=== PATIENT | female | born 2000 | race Caucasian/White ===

== ENCOUNTER → 2019-12-02 | Outpatient (CLI) | payer BC ==
--- NOTE | 2019-12-03 08:34 | US ---
EXAMINATION TYPE: US abdomen comp/pelvis limited DATE OF EXAM: 12/02/2019 COMPARISON: NONE CLINICAL HISTORY: R10.9 Abdominal pain. Pain nausea and vomiting for 4 days. EXAM MEASUREMENTS: Liver Length: 14.6 cm Gallbladder Wall: .2 cm CBD: .4 cm Spleen: 10.2 cm Right Kidney: 9.5 x 3.5 x 5.5 cm Left Kidney: 10.8 x 5.6 x 4.6 cm Pancreas: wnl Liver: wnl Gallbladder: wnl CBD: wnl Spleen: wnl Right Kidney: No hydronephrosis or masses seen Left Kidney: No hydronephrosis or masses seen Upper IVC: wnl Abd Aorta: wnl Bladder: wnl Bilateral Jets Seen No IMPRESSION: Unremarkable abdominal ultrasound. No sonographic evidence of cholelithiasis nor acute ch olecystitis.
== END | disposition home or self-care (01) ==
LOC: RADUSWWP 14:52
PROVIDERS: ATTEND Family Medicine
DX: R10.9 Unspecified abdominal pain (principal)
CPT/HCPCS: 76700; 76857

== ENCOUNTER → 2021-01-08 | Outpatient (CLI) | payer BC ==
[2021-01-08 14:37] LABS: Basophils # (A) 0.05 X 10*3/uL (0.00-0.10); Basophils % (A) 0.5 %; Eosinophils # (A) 0.16 X 10*3/uL (0.04-0.35); Eosinophils % (A) 1.7 %; HCT 43.7 % (37.2-46.3); HGB 14.6 g/dL (12.0-15.0); Lymphocytes # (A) 3.91 X 10*3/uL (0.90-5.00); MCH 29.7 pg (27.0-32.0); MCHC 33.4 g/dL (32.0-37.0); MCV 88.8 fL (80.0-97.0); Mean Platelet Volume 10.3 fL (9.5-12.2); Monocytes # (A) 0.84 X 10*3/uL (0.20-1.00); Neutrophils # (A) 4.32 X 10*3/uL (1.80-7.70); Neutrophils % (A) 46.6 %; Platelet Count 351 X 10*3/uL (140-440); RBC 4.92 X 10*6/uL (4.10-5.20); RDW 11.5 % (11.5-14.5)
[2021-01-08 16:44] LABS: African American GFR (CKD) 121.3 (60.0-200.0); Albumin 4.9 g/dL (3.80-4.90); Albumin/Globulin Ratio 2.13 (1.60-3.17); Anion Gap 7.8 mmol/L (4.00-12.00); BUN/Creat Ratio 16.25 Ratio (12.00-20.00); Calcium 9.9 mg/dL (8.7-10.3); Carbon Dioxide 29.2 mmol/L (21.6-31.8); Chol/HDL Ratio 2.6; Globulin 2.3 g/dL (1.6-3.3); LDL Cholesterol,Calculated 99.6 mg/dL (0.0-131.0); Non-African American GFR(CKD) 104.6 (60.0-200.0); Potassium 3.9 mmol/L (3.5-5.5); Total Bilirubin 0.8 mg/dL (0.3-1.2); Total Protein 7.2 g/dL (6.2-8.2); VLDL Calculation 12.4 mg/dL (5.00-40.00)
== END | disposition home or self-care (01) ==
LOC: LABWHC1 07:41
PROVIDERS: ATTEND Family Medicine
DX: Z00.00 Encounter for general adult medical examination without abnormal findings (principal)
CPT/HCPCS: 36415; 80053; 80061; 84443; 85025

== ENCOUNTER → 2021-01-15 | Outpatient (CLI) | payer BC ==
--- NOTE | 2021-01-16 15:51 | US ---
EXAMINATION TYPE: US thyroid st tissue head/neck DATE OF EXAM: 01/15/2021 COMPARISON: NONE CLINICAL HISTORY: E06.9 THYROIDITIS. GLAND SIZE: Right Lobe: 5.5 x 1.5 x 1.3 cm Overall Parenchyma: mildly heterogeneous Left Lobe: 5.5 x 1.3 x 1.6 cm Overall Parenchyma: mildly heterogeneous Isthmus Thickness: 0.3 cm NODULES RIGHT: # of nodules measured on right: 0 LEFT: # of nodules measured on left: 0 ISTHMUS: # of nodules measured in the isthmus: 0 Bilateral neck scanned, no evidence of lymphadenopathy. Gland is mildly heterogeneous without definite nodule seen. IMPRESSION: 1. Mild prominence of the thyroid. No suspicious nodules evident
== END ==
LOC: RADUSWWP 16:27
PROVIDERS: ATTEND Family Medicine
DX: E06.9 Thyroiditis, unspecified (principal)
CPT/HCPCS: 76536

== ENCOUNTER → 2021-07-10 | Outpatient (CLI) | payer BC | END | disposition home or self-care (01) | LOC: LABWHC1 15:00 | PROVIDERS: ATTEND Emergency Medicine | DX: Z20.822 Contact with and (suspected) exposure to COVID-19 (principal) | CPT/HCPCS: 87635 ==

== ENCOUNTER → 2021-07-11 | Outpatient (CLI) | payer BC | END | disposition home or self-care (01) | LOC: LABMAIN 15:12 | PROVIDERS: ATTEND Emergency Medicine | DX: Z20.822 Contact with and (suspected) exposure to COVID-19 (principal) | CPT/HCPCS: 87635 ==

== ENCOUNTER → 2021-08-09 | Outpatient (CLI) | payer BC | END | disposition home or self-care (01) | LOC: LABWHC1 19:40 | PROVIDERS: ATTEND Emergency Medicine | DX: Z20.822 Contact with and (suspected) exposure to COVID-19 (principal) | CPT/HCPCS: 87635 ==

== ENCOUNTER → 2021-08-10 | Outpatient (CLI) | payer BC, OTHER | END | disposition home or self-care (01) | LOC: LABWHC1 18:05 | PROVIDERS: ATTEND Emergency Medicine | DX: Z20.822 Contact with and (suspected) exposure to COVID-19 (principal) | CPT/HCPCS: 87635 ==

== ENCOUNTER → 2021-10-23 | Outpatient (CLI) | payer BC, OTHER | END | disposition home or self-care (01) | LOC: LABWHC1 14:24 | PROVIDERS: ATTEND Emergency Medicine | DX: Z20.822 Contact with and (suspected) exposure to COVID-19 (principal) | CPT/HCPCS: 87635 ==

== ENCOUNTER → 2021-10-24 | Outpatient (CLI) | payer BC, OTHER | END | disposition home or self-care (01) | LOC: LABWHC1 15:31 | PROVIDERS: ATTEND Emergency Medicine | DX: Z20.822 Contact with and (suspected) exposure to COVID-19 (principal) | CPT/HCPCS: 87635 ==

== ENCOUNTER → 2023-09-05 | Outpatient (CLI) | payer BC ==
--- NOTE | 2023-09-05 15:26 | US ---
EXAMINATION TYPE: US renals and bladder DATE OF EXAM: 09/05/2023 COMPARISON: NONE CLINICAL INDICATION: Female, 23 years old with history of R39.9 UNSP SYMPTOMS AND SIGNS INVOLVING THE GENITO; Frequent UTI's EXAM MEASUREMENTS: Right Kidney: 10.9 x 4.7 x 5.8 cm Left Kidney: 10.9 x 5.4 x 5.0 cm Post Void Residual Volume: 17.5 mL Right Kidney: No prominent hydronephrosis or masses seen Left Kidney: No prominent hydronephrosis or masses seen Bladder: wnl Bilateral Jets seen: Yes Normal Post Void Residual: Yes IMPRESSION: Normal renal ultrasound.
== END | disposition home or self-care (01) ==
LOC: RADUSWWP 12:11
PROVIDERS: ATTEND Family Medicine
DX: N39.0 Urinary tract infection, site not specified (principal); R39.9 Unspecified symptoms and signs involving the genitourinary system
CPT/HCPCS: 76770

== ENCOUNTER 2024-09-23 13:15 | Day surgery (SDC) | payer BC, OTHER ==
[2024-09-22 13:37] VITALS: BMI 25.3
[2024-09-23] MEDS ORDERED: LACTATED RINGERS 1,000 ML IV SCH (14:08)
[2024-09-23 14:25] VITALS: RESP 16; TEMP 98.7
--- NOTE | 2024-09-23 15:17 | P.PCN ---
Date of Procedure: 09/23/24 Procedure(s) Performed: Preoperative diagnosis: Multiple sclerosis Post operative diagnoses: Multiple sclerosis Procedure= lumbar puncture Anesthesia= local infiltration with lidocaine 1% 2 mL. Condition: stable Complication: none. Description of the procedure procedure risk and benefits discussed with the patient , consent signed. Patient and the procedure area placed in sitting position , back prepped with chlorhexidine 3 times been local infiltration of the skin and subcutaneous tissue with lidocaine 1% 2 mL for skin and subcu interstitial frustrations at L4 5 levels then 22-gauge Quincke-type needle advanced slowly at L4- 5 interlaminar space there was positive cerebrospinal fluid which was clear, no heme, no paresthesia ,total of 8 ML of clear cerebrospinal fluid collected in 4 different tubes 2 mL in each, then the needle removed and a Band-Aid applied and patient tolerated the procedure well without any complications.
[2024-09-23 15:42] VITALS: BP 120/76; PULSE 83
[2024-09-23 15:45] LABS: ALT 19 U/L (4-34); AST 21 U/L (14-36); Glucose 80 mg/dL (74-99)
[2024-09-23 17:18] LABS: Appearance,CSF Clear; CSF Tube Number 4; CSF Tube Volume 2.5
[2024-09-23 17:30] LABS: Glucose,CSF 48 mg/dL (40-70); Total Protein,CSF 47 mg/dL (12-60)
[2024-09-23 17:31] LABS: Nucleated Cells, CSF 1 u/L (0-5); Red Blood Cell,CSF 0 u/L (0-10)
[2024-09-23 22:17] LABS: Anti-DNA, DS unit <1.0 IU/mL; Anti-Smith Ab Interp Negative (Negative); DNA Double-Stranded Negative (Negative)
[2024-09-24 03:58] LABS: Rheumatoid Factor, Qnt <15 IU/mL (0-15)
[2024-09-24 10:15] LABS: VDRL, Qualitative CSF Nonreactive (Nonreactive)
[2024-09-24 12:58] LABS: APTT 44 Sec(s) (<43); APTT 1:1 Mix 38 Sec(s) (<43); Dilute Russell Viper Venom 43 Sec(s) (<44)
== END 2024-09-23 15:57 | disposition home or self-care (01) ==
LOC: ORPAIN 13:15
PROVIDERS: ATTEND Specialist
DX: G35 Multiple sclerosis (principal); R20.2 Paresthesia of skin; R93.0 Abnormal findings on diagnostic imaging of skull and head, not elsewhere classified
CPT/HCPCS: 62270; 81025; 82945; 82947; 83873; 83916; 84157; 84436; 84443; 84450; 84460; 85613; 85730; 85732; 86038; 86225; 86235; 86431; 86592; 86618; 86780; 88108; 89050

== ENCOUNTER 2024-11-09 16:39 | Emergency (ER) | payer OTHER ==
[2024-11-09 16:51] VITALS: TEMP 98.5
--- NOTE | 2024-11-09 17:21 | ED ---
Headache HPI - General Chief Complaint: Headache Stated Complaint: occipital neuralgia-8 weeks preg Time Seen by Provider: 11/09/24 17:18 Source: RN notes reviewed Mode of arrival: ambulatory Limitations: no limitations - History of Present Illness Initial Comments: 24-year-old female at approximately 8 weeks gestation presenting to the ER with chief complaint of occipital neuralgia. States she is in the process of being diagnosed with multiple sclerosis. Describes a tingling/itchy sensation in the back of her head with sharp pain radiating to the ear. Denies fever, chills, nausea, vomiting, abdominal pain, vaginal bleeding. She has had several flareups similar to this in the past which were attributed to MS flareups and she was treated with steroids. She is approximately 8 weeks , last menstrual period was September 08. She was seen by her PCP Dr. Nuñez's office yesterday where they recommended Tylenol. Patient states she has been taking Tylenol with little relief. Has upcoming OB appointment with Dr. Mcgrath. States she has had recent MRI at [facility] for MS workup which revealed lesions on C3 and cerebellum. - Related Data Home Medications Medication Instructions Recorded Confirmed Acetaminophen Tab [Tylenol Tab] 500 mg PO Q4H PRN 09/22/24 09/23/24 Ascorbic Acid [Vitamin C] 240 mg PO DAILY 09/22/24 09/23/24 Calcium, Magnesium, Zinc 1 tab PO DAILY 09/22/24 09/23/24 Cetirizine HCl 10 mg PO DAILY PRN 09/22/24 09/23/24 Cholecalciferol (Vitamin D3) 50 mcg PO DAILY 09/22/24 09/23/24 [Vitamin D3 (50 Mcg = 2000 Iu)] Ibuprofen [Motrin Ib] 200 mg PO Q8H PRN 09/22/24 09/23/24 Vitamin + Dha 1 tab PO DAILY 09/22/24 09/23/24 Probiotic/Prebiotic Combo 1 tab PO DAILY 09/22/24 09/23/24 Vitamin B Complex 1 each PO DAILY 09/22/24 09/23/24 guaiFENesin [Mucinex] 600 mg PO DAILY 09/23/24 09/23/24 Allergies Allergy/AdvReac Type Severity Reaction Status Date / Time No Known Allergies Allergy Verified 11/09/24 16:51 Review of Systems ROS Statement: Those systems with pertinent positive or pertinent negative responses have been documented in the HPI. ROS Other: All systems not noted in ROS Statement are negative. Past Medical History Past Medical History: Thyroid Disorder Additional Past Medical History / Comment(s): Numbness and tingling in lower extremitires and fingers and hands since beginning of June, look down has shock down ruling out MSJanice Hashimotos Thyriditis, History of Any Multi-Drug Resistant Organisms: MRSA Date of last positivie culture/infection: 2021 MDRO Source:: nose Additional Past Surgical History / Comment(s): [place] teeth extracted. Past Anesthesia/Blood Transfusion Reactions: No Reported Reaction, Motion Sickness Past Psychological History: No Psychological Hx Reported Smoking Status: Never smoker Past Alcohol Use History: None Reported Past Drug Use History: None Reported - Past Family History Mother Family Medical History: No Reported History General Exam Limitations: no limitations General appearance: alert, in no apparent distress Head exam: Present: atraumatic, normocephalic, normal inspection Eye exam: Present: normal appearance, PERRL, EOMI. Absent: scleral icterus, conjunctival injection, periorbital swelling ENT exam: Present: normal exam, normal oropharynx, mucous membranes moist, TM's normal bilaterally Neck exam: Present: normal inspection. Absent: tenderness, meningismus, lymphadenopathy Respiratory exam: Present: normal lung sounds bilaterally. Absent: respiratory distress, wheezes, rales, rhonchi, stridor Cardiovascular Exam: Present: regular rate, normal rhythm, normal heart sounds. Absent: systolic murmur, diastolic murmur, rubs, gallop, clicks GI/Abdominal exam: Present: soft, normal bowel sounds. Absent: distended, tenderness, guarding, rebound, rigid Neurological exam: Present: alert, oriented X3, CN II-XII intact Psychiatric exam: Present: normal affect, normal mood Skin exam: Present: warm, dry, intact, normal color. Absent: rash Course Vital Signs 11/09/24 16:47 Temperature 98.5 F Pulse Rate 97 Respiratory 20 Rate Blood Pressure 148/95 O2 Sat by Pulse 99 Oximetry Medical Decision Making - Medical Decision Making Was pt. sent in by a medical professional or institution (, PA, PROGRAMMING SPECIALIST, urgent care, hospital, or retirement...) When possible be specific @ -No Did you speak to anyone other than the patient for history (EMS, parent, family, police, friend...)? What history was obtained from this source @ -No Did you review nursing and triage notes (agree or disagree)? Why? @ -I reviewed and agree with nursing and triage notes Were old charts reviewed (outside hosp., previous admission, EMS record, old EKG, old radiological studies, urgent care reports/EKG's, retirement records)? Report findings @ -No old charts were reviewed Differential Diagnosis (chest pain, altered mental status, abdominal pain women, abdominal pain men, vaginal bleeding, weakness, fever, dyspnea, syncope, headache, dizziness, GI bleed, back pain, seizure, CVA, palpatations, mental health, musculoskeletal)? @ -Differential Headache: Migraine, tension, cluster, carbon monoxide, central venous thrombosis, pension karma temporal arteritis, acute closure glaucoma, intercranial hemorrhage, mastoiditis, sinusitis, head injury, this is not meant to be an all-inclusive list. EKG interpreted by me (3pts min.). @ -None X-rays interpreted by me (1pt min.). @ -None done CT interpreted by me (1pt min.). @ -None done U/S interpreted by me (1pt. min.). @ -None done What testing was considered but not performed or refused? (CT, X-rays, U/S, labs)? Why? @ -None What meds were considered but not given or refused? Why? @ -None Did you discuss the management of the patient with other professionals (professionals i.e. , PA, PROGRAMMING SPECIALIST, lab, RT, psych nurse, hospice social worker, couturiere, teacher, licensing officer, gearcase assembler)? Give summary @ -No Was smoking cessation discussed for >3mins.? @ -No Was critical care preformed (if so, how long)? @ -No Were there social determinants of health that impacted care today? How? (Homelessness, low income, unemployed, alcoholism, drug addiction, transportation, low edu. Level, literacy, decrease access to med. care, halfway, rehab)? @ -No Was there de-escalation of care discussed even if they declined (Discuss DNR or withdrawal of care, Hospice)? DNR status @ -No What co-morbidities impacted this encounter? (DM, HTN, Smoking, COPD, CAD, Cancer, CVA, ARF, Chemo, Hep., AIDS, mental health diagnosis, sleep apnea, morbid obesity)? @ -None Was patient admitted / discharged? Hospital course, mention meds given and route, prescriptions, significant lab abnormalities, going to OR and other pertinent info. @ -Discharge. This is a 24-year-old female at 8 weeks gestation presenting for occipital neuralgia. Patient is in the process of being diagnosed with MS and states this is similar to previous MS flares. Patient is mildly hypertensive at 148/95. Neurological examination is unremarkable. No sign of bacterial infection. Urinalysis remarkable for 1+ ketones, negative for protein. Discussed results with patient. Discussed with patient that steroids are not recommended at this time due to risk of craniofacial abnormalities and intrauterine growth restriction. Advised to continue Tylenol and use Benadryl for pain control. Appropriate return precautions and follow-up care discussed. Case was discussed with my ED attending Dr. Thompson. Undiagnosed new problem with uncertain prognosis? @ -No Drug Therapy requiring intensive monitoring for toxicity (Heparin, Nitro, Insulin, Cardizem)? @ -No Were any procedures done? @ -No Diagnosis/symptom? @ -Occipital neuralgia Acute, or Chronic, or Acute on Chronic? @ -Acute Uncomplicated (without systemic symptoms) or Complicated (systemic symptoms)? @ -Uncomplicated Side effects of treatment? @ -No Exacerbation, Progression, or Severe Exacerbation? @ -No Poses a threat to life or bodily function? How? (Chest pain, USA, GA, pneumonia, PE, COPD, DKA, ARF, appy, cholecystitis, CVA, Diverticulitis, Homicidal, Suicidal, threat to staff... and all critical care pts) @ -Not at this time - Lab Data Lab Results 11/09/24 Range/Units 18:02 Urine Color Colorless Urine Appearance Clear (Clear) Urine pH 6.0 (5.0-8.0) Ur Specific [place] 1.007 (1.001-1.035) Urine Protein Negative (Negative) Urine Glucose (UA) Negative (Negative) Urine Ketones 1+ H (Negative) Urine Blood Negative (Negative) Urine Nitrite Negative (Negative) Urine Bilirubin Negative (Negative) Urine Urobilinogen <2.0 (<2.0) mg/dL Ur Leukocyte Esterase Negative (Negative) Disposition Clinical Impression: Occipital neuralgia Disposition: HOME SELF-CARE Condition: Stable Additional Instructions: Continue taking Tylenol and Benadryl as discussed. Follow-up with PCP and OB. Please return to the Emergency Department if symptoms worsen or any other concerns. Is patient prescribed a controlled substance at d/c from ED?: No Referrals: Yoni Nuñez MD [Primary Care Provider] - 1-2 days Time of Disposition: 18:27
[2024-11-09 18:10] LABS: Appearance,Urine Clear (Clear); Bilirubin,Urine Negative (Negative); Blood,Urine Negative (Negative); Color,Urine Colorless; Glucose,Urine (UA) Negative (Negative); Ketones,Urine 1+ (Negative); Leukocyte Esterase,Urine Negative (Negative); Nitrite,Urine Negative (Negative); Protein,Urine Negative (Negative); Specific Gravity,Urine 1.007 (1.001-1.035); Urobilinogen,Urine <2.0 mg/dL (<2.0)
[2024-11-09 18:47] VITALS: BP 117/79; PULSE 80; RESP 18
== END 2024-11-09 18:47 | disposition home or self-care (01) ==
LOC: EC 16:39
DX: O99.351 Diseases of the nervous system complicating pregnancy, first trimester (principal); M54.81 Occipital neuralgia; Z3A.08 8 weeks gestation of pregnancy
CPT/HCPCS: 81003; 99284

== ENCOUNTER 2025-05-31 17:01 | Outpatient (CLI) | payer OTHER ==
[2025-05-31 17:40] LABS: Basophils # (A) 0.03 10*3/uL (0.00-0.10); Basophils % (A) 0.3 %; Eosinophils # (A) 0.07 10*3/uL (0.04-0.35); Eosinophils % (A) 0.7 %; HCT 37.9 % (37.2-46.3); HGB 13.1 g/dL (12.0-15.0); Lymphocytes # (A) 1.83 10*3/uL (0.90-5.00); Lymphocytes % (A) 17.7 %; MCH 31.3 pg (27.0-32.0); MCHC 34.6 g/dL (32.0-37.0); MCV 90.7 fL (80.0-97.0); Monocytes # (A) 1.04 10*3/uL (0.20-1.00); Monocytes % (A) 10.1 %; Neutrophils # (A) 7.33 10*3/uL (1.80-7.70); Neutrophils % (A) 70.8 %; Platelet Count 232 10*3/uL (140-440); RBC 4.18 10*6/uL (4.10-5.20); RDW 12.1 % (11.5-14.5); WBC 10.34 10*3/uL (4.50-10.00)
[2025-05-31 17:49] LABS: Bilirubin,Urine Negative (Negative); Blood,Urine Negative (Negative); Color,Urine Colorless; Glucose,Urine (UA) Negative (Negative); Ketones,Urine Negative (Negative); Leukocyte Esterase,Urine Negative (Negative); Nitrite,Urine Negative (Negative); PH, Urine 6.5 (5.0-8.0); Protein,Urine Negative (Negative); Specific Gravity,Urine 1.004 (1.001-1.035); Urobilinogen,Urine <2.0 mg/dL (<2.0)
[2025-05-31 17:52] LABS: ALT 13 U/L (4-34); AST 23 U/L (14-36); African American GFR (CKD) >90 (>60 ml/min/1.73 sqM); Blood Urea Nitrogen 5 mg/dL (7-17); LDH 208 U/L (120-246); Magnesium 1.8 mg/dL (1.6-2.3); Non-African American GFR(CKD) >90 (>60 ml/min/1.73 sqM); Uric Acid 5.5 mg/dL (3.7-7.4)
[2025-05-31 17:56] LABS: Fibrinogen 593.0 mg/dL (200-500); INR 0.9 (<1.2); Partial Thromboplastin Time 23.3 sec (22.0-30.0); Prothrombin Time 9.9 sec (10.0-12.5)
[2025-05-31 18:11] LABS: Protein/Creatinine Ratio,Urine 0.435
[2025-05-31] MEDS: LABETALOL 100 MG TAB PO SCH (18:33)
[2025-05-31 19:14] VITALS: BP 165/90; PULSE 73; RESP 16; TEMP 98.6
[2025-05-31] MEDS ORDERED: LABETALOL 100 MG TAB PO SCH (21:00)
--- NOTE | 2025-06-12 13:09 | P.MSEPDOC ---
Presenting Problems - Arrival Data Date of Arrival on Unit: 05/31/25 Time of Arrival on Unit: 17:01 Mode of Transport: Ambulatory - Complaint OB-Reason for Admission/Chief Complaint: PIH Medical History - Information : 1 Para: 0 Number of Living Children: 0 - Gestational Age Gestational Age by CHANDRA (wks/days): 36 Weeks and 3 Days Review of Systems - Review of Systems Constitutional: No problems Breast: No problems ENT: No problems Cardiovascular: No problems Respiratory: No problems Gastrointestinal: No problems Genitourinary: No problems Musculoskeletal: No problems Neurological: No problems Skin: No problems Vital Signs - Temperature Temperature: 98.6 F Temperature Source: Oral - Pulse Right Pulse Rate: 73 Pulse Assessment Method: Automatic Cuff - Respirations Respiratory Rate: 16 Oxygen Delivery Method: Room Air O2 Sat by Pulse Oximetry: 98 - Blood Pressure Right Arm Blood Pressure: 165/90 Blood Pressure Mean: 115 Blood Pressure Source: Automatic Cuff Medical Screen Scoring - Assessment - Baby A Baseline FHR: 130 Heart Rate - NICHD Category: Category I (Normal) NST: Reactive Physician Notification - Physician Notified Physician Notified Date: 05/31/25 Physician Notified Time: 19:00 Physician: Trenton Champagne New Order Received: Yes (discharge home) Maternal Triage Index - Stat/Priority 1 Stat Priority 1: No - Urgent/Priority 2 Urgent Priority 2: Yes Provider Notified: Trenton Champagne Provider Notified Time: 17:20 Criteria Met for Priority 2: labs ran, serial b/ps, labetalol given Disposition - Disposition OB Disposition: Discharge to home Discharge Date: 05/31/25 Discharge Time: 19:15 I agree with the RN Medical Screening Exam: Yes Physician's MSE Comment: I have neither seen nor examined the patient. Case reviewed; plan agreed upon as documented in EMR&OBIX.: Yes Diagnosis: RELATED CONDITIONS, UNSPECIFIED, THIRD TRIMESTER
== END 2025-05-31 19:15 | disposition home or self-care (01) ==
LOC: FBPOP 17:01
PROVIDERS: ATTEND Obstetrics & Gynecology
CPT/HCPCS: 36415; 59025; 81003; 82565; 82570; 83615; 83735; 84156; 84450; 84460; 84520; 84550; 85025; 85384; 85610; 85730; 99215